=== PATIENT | female | born 1990 | race Caucasian/White ===

== ENCOUNTER 2016-07-27 19:55 | Emergency (ER) | payer OTHER ==
[~2016-07-27] VITALS: Ht 157.5 cm; Wt 75.0 kg
[~2016-07-27 19:55] MED LIST: HYDR-4003 PO; ONDA8TAB10 PO
[2016-07-27 20:10] VITALS: BP 121/80; PULSE 84; RESP 10; O2SAT 100
[2016-07-27] MEDS ORDERED: 0.9% Sodium Chloride 1,000 ML IV ONE (20:14)
--- NOTE | 2016-07-27 20:32 | ED.REPORT ---
HPI-Abd Pain F Under 40 Date of Service July 27, 2016 ED Provider: Sage Bello MD Patient is a 25 year old female with a history of kidney stones who presents to the ED complaining of abdominal pain. Associated symptoms include flank pain, fever and dysuria, and abnormal white vaginal discharge for the past two days. She denies abnormal vaginal bleeding, itching, or vaginal pain. The patient is 12 weeks . Nursing Notes Stated Complaint: KIDNEY PAIN Chief Complaint: Female Abdominal Pain Nursing Notes Reviewed: Yes Allergies: Coded Allergies: prochlorperazine (Unverified Allergy, Severe, dystonic, 03/23/16) Penicillins (Verified Allergy, Mild, hives, 07/27/16) latex (Verified Allergy, Mild, hives, 07/27/16) Uncoded Allergies: SHELLFISH (Allergy, Severe, anaphalatics, 07/27/16) CONTRAST DYE (Allergy, Unknown, 03/23/16) Scheduled Metronidazole (Metronidazole) 500 Mg Tablet 500 MG PO BID Scheduled PRN Hydrocodone-Acetaminophen 5-325 mg (Hydrocodone-Acetaminophen 5-325 mg) 1 Each Tablet 1-2 TABLET PO TID PRN PRN For Pain Ondansetron ODT (Ondansetron ODT) 8 Mg Tab.rapdis 8 MG PO Q4H PRN PRN For Nausea General Time Seen by MD: 20:14 Chief Complaint Abdominal pain Hx Obtained From: Patient Arrived By: Walk-in Sudden in Onset?: Yes Onset Occurred: 2 days ago Symptom Duration: Since onset Location: : Abdomen lower Radiation: : Flank bilateral Associated with: Reports: Dysuria, Fever, Vaginal discharge, Denies: Urinary tract symptoms, Vaginal bleeding Recent Healthcare: No recent hospitalization Similar Sx Previous: Yes Past Medical History Past Medical History kidney stones appendectomy Smoking History Unknown if Ever Smoker Social History Other Social History: Good social support Ambulatory Status Independent Review of Systems Constitutional: Reports: Fever Respiratory: Denies: Non-productive cough, Shortness of breath GI: Reports: Abdominal pain Female: Reports: Dysuria, Flank pain, , Vaginal discharge (white discharge), Denies: Vaginal bleeding - abnl Complete sys rev & neg: except as marked. Physical Exam Initial Vital Signs Vital Signs (First) Date Time Temp Pulse Resp B/P Pulse Ox O2 Delivery O2 Flow Rate FiO2 07/27/16 20:10 36.8 84 10 121/80 100 Room Air Initial VS: Reviewed General/Constitutional: Awake, Alert Distress / Hydration: Positive: Distress mild Respiratory / Chest: Atraumatic, Breath sounds NL, Breath sounds = bilat, No respiratory distress Cardiovascular: Heart rate NL, Regular rhythm, Heart sounds NL, No gallop, No murmurs Abdomen: Atraumatic, Soft, BS normoactive Tenderness/Guarding/Rebound: Positive: Tender RLQ... Back: Atraumatic, Full range of motion positive CVA tenderness on right side Head / Eyes: Atraumatic, Normocephalic, PERRL, EOMI Skin: Atraumatic, Color NL, No rash, Warm, Dry Female Genitourinary: Atraumatic, External genitalia NL, No cervical motion tend, No adnexal mass right adnexal tenderness scant, clear discharge uterus seems small for dates Neurologic: Oriented X3, Speech NL, No motor deficits, No sensory deficits Psychiatric: Affect NL, Mood NL Interpretation & Diagnostics Interpretation & Diagnostics: US RENAL: Impression: Normal study at 2319. US : Impression: Normal early intrauterine gestation No findings to explain the patient's right adnexal pain at 0038. Lab Results Interpretation Result Diagram: 07/27/16203107/27/162031 Test 07/27/16 20:32 07/27/16 20:41 07/27/16 23:30 White Blood Count 9.8th/mm3 (3.8-10.1) Red Blood Count 4.35mil/mm3 (3.90-5.20) Hemoglobin 13.3g/dL (12.0-15.6) Hematocrit 37.8% (35.0-46.0) Mean Corpuscular Volume 86.9fL (81-100) Mean Corpuscular Hemoglobin 30.6pg (27.0-35.0) Mean Corpuscular Hemoglobin Concent 35.2% (32.0-37.0) Red Cell Distribution Width 13.0% (12.3-15.4) Platelet Count 225bil/L (150-400) Neutrophils (%) (Auto) 65.5% (40-74) Lymphocytes (%) (Auto) 25.2% (14-46) Monocytes (%) (Auto) 8.0% (4-12) Eosinophils (%) (Auto) 1.0% (0-5) Basophils (%) (Auto) 0.1% (0-3) Sodium Level 136mEq/L (134-144) Potassium Level 3.6mEq/L (3.5-5.2) Chloride Level 101mEq/L (97-108) Carbon Dioxide Level 20mmol/L (18-29) Blood Urea Nitrogen 8mg/dL (6-20) Creatinine 0.46mg/dL (0.57-1.00) Estimat Glomerular Filtration Rate 241mL/min (>59) Glucose Level 84mg/dL (60-99) Calcium Level 9.0mg/dL (8.5-10.1) Magnesium Level 1.8mg/dL (1.6-2.6) Total Bilirubin 0.4mg/dL (0.0-1.2) Aspartate Amino Transf (AST/SGOT) 14U/L (0-50) Alanine Aminotransferase (ALT/SGPT) 9U/L (0-32) Alkaline Phosphatase 38U/L (25-150) Total Protein 6.3g/dL (6.4-8.4) Albumin 3.6g/dL (3.4-5.0) Lipase 19U/L (13-60) Urine Color Yellow (YELLOW) Urine Appearance Clear (CLEAR,HAZY) Urine pH 6.0 (5.0-8.0) Urine Specific [place] 1.020 (1.003-1.035) Urine Protein Negativemg/dL (NEG,TRACE) Urine Glucose (UA) Negativemg/dL (NEGATIVE) Urine Ketones Negativemg/dL (NEGATIVE) Urine Occult Blood Negative (NEGATIVE) Urine Nitrite Negative (NEGATIVE) Urine Bilirubin Negative (NEGATIVE) Urine Urobilinogen Normalmg/dL (NORMAL) Urine Leukocyte Esterase Negative (NEGATIVE) Urine RBC 0-2/hpf (0-2) Urine WBC 0-5/hpf (0-5) Urine Epithelial Cells Moderate/hpf (NONE-MOD) Urine Crystals None seen (NONE SEEN) Urine Bacteria Few/hpf (NONE-FEW) Urine Hyaline Casts None/lpf (NONE) Urine Granular Casts None seen (NONE SEEN) Urine Waxy Casts None seen (NONE SEEN) Urine Red Blood Cell Casts None seen (NONE SEEN) Urine White Blood Cell Casts None seen (NONE SEEN) Urine Mucus None seen (None Seen) Urine Trichomonas None seen (NONE SEEN) Urine Yeast None (NONE SEEN) Urinalysis Comment None Urine Culture Reflexed Not indicated Re-Eval/Medical Decision Med Decision/Clinical Course Med Decision/Clinical Course: 25 year-old female at about 12 weeks gestation. R flank pain, history of kidney stones and appy. No hematuria, no infection, no hydronephrosis on US. Only abnormality is bacteria on wet prep and clue cells. Treated with IV fluids, ondansetron and IV dilaudid. Stable throughout ED stay though she had some continued pain and nausea. Discharged on symptomatic treatment and metronidazole. Re-Evaluation/Progress #1: Time of Eval: 21:45 Re-Evaluation/Progress Note: Rechecked patient. Discussed plan for an ultrasound. Re-Evaluation/Progress #2: Time of Eval: 00:30 Re-Evaluation/Progress Note: Rechecked patient and discussed all results. Discussed plan for treatment and discharge. The patient understands and agrees to the plan for discharge. All questions were addressed. Counseled Regarding: Diagnosis, Lab results, Need for follow-up, When/why to return to ED Discharge & Departure Primary Impression: Bacterial vaginosis Additional Impression: Pelvic pain affecting Disposition: Home Discharge Condition All VS Reviewed: Yes Condition: Stable Patient Instructions: Bacterial Vaginosis (ED) Additional Instructions: Emergency Department evaluation included interview, examination, labs ultrasound of kidneys and pelvis. There does not appear to be any serious urinary pathology including infection and/or renal stones. We identified a bacterial vaginal infection which may be treated with metronidazole 500 mg twice a day for one week. This medication is considered safe in . Ondansetron as needed for nausea and vomiting, hydrocodone as needed for pain. Follow-up with your doctor in approximately 4-5 days. Return emergency Department for vaginal bleeding, fevers or increasing pelvic pain. Referrals: Smiley Pulido MD (PCP) Scribe Attestation Portions of this note were transcribed by Kari Howard. I, Dr. Bello personally performed the history, physical exam and medical decision-making; I reviewed and confirmed the accuracy of the information in the transcribed note. Signed by: Alfred Barton, 07/28/16 at 0050 copies to: Smiley Pulido MD, Donald L MD July 27, 2016 20:31 Yojana Howard July 27, 2016 20:39
[2016-07-27] MEDS: HYDROmorphone 0.5 mg/0.5 mL iSecure Syringe IVPUSH PRN ×3 (20:42→22:05)
[2016-07-27] MEDS: Ondansetron 2 mg/mL 2 mL Inj IVPUSH PRN ×2 (20:42→21:23)
[2016-07-27 20:43] LABS: BASOPHILS % (AUTO) 0.1 % (0-3); Mean Corpuscular Hemoglobin 30.6 pg (27.0-35.0); Mean Corpuscular Volume 86.9 fL (81-100); NEUTROPHILS % (AUTO) 65.5 % (40-74); Platelet Count 225 bil/L (150-400)
[2016-07-27 21:02] LABS: Magnesium 1.8 mg/dL (1.6-2.6)
[2016-07-27 21:11] LABS: APPEARANCE,URINE CLEAR (CLEAR,HAZY); COLOR,URINE YELLOW (YELLOW); OCCULT BLOOD,URINE NEGATIVE (NEGATIVE); UROBILINOGEN,URINE NORMAL (NORMAL)
[2016-07-28] MEDS ORDERED: METR500T19 PO (00:08)
[2016-07-28] MEDS: Ondansetron 2 mg/mL 2 mL Inj IVPUSH PRN (00:09)
[2016-07-28] MEDS ORDERED: _Ondansetron ODT 4 mg Tablet PO PRN (00:10)
[2016-07-28] MEDS ORDERED: _HYDROcodone/APAP 5-325 mg Tablet PO PRN (00:10)
[2016-07-28 00:56] VITALS: BP 128/78; PULSE 82; RESP 16; O2SAT 98
--- NOTE | 2016-07-28 08:53 | DRSVH ---
PROCEDURE: US RENAL SONOGRAM INDICATIONS: RIGHT FLANK PAIN, HISTORY OF STONES, . TECHNIQUE: Real-time scanning was performed of the kidneys and bladder, with image documentation. COMPARISON: None. FINDINGS: Kidneys: Kidneys are normal in size. Right kidney measures 11.0 cm long; left kidney measures 10.5 cm long. Right renal cortical thickness is 2.0 cm; left renal cortical thickness is 1.1 cm. Renal c ortical echotexture is normal. No hydronephrosis or nephrolithiasis. No suspicious solid mass lesio ns. Bladder: Bladder appears grossly normal. Right ureteral jet is present. Post void not assessed. Miscellaneous: No free pelvic fluid. IMPRESSION: 1. Normal appearance of the kidneys. Dictated by: David CHILD Interpreted: Sin Herman MD on 07/28/2016 at 8:05 Transcribed by: MILI on 07/28/2016 at 11:53 Approved by: Darryl Herman M.D. on 07/28/2016 at 9:31
--- NOTE | 2016-07-28 14:35 | DRSVH ---
PROCEDURE: US OB<14 WKS INDICATIONS: R adnexal tenderness OUTSIDE/PRIOR DATING DATA: First dating scan (date and location): 07/27/16 Estimated date of delivery ([place]) from first dating scan: 02/10/17. TECHNIQUE: Real-time scanning was performed of the fetus and maternal pelvic organs, with image documentation. Endovaginal scanning was also performed to better visualize the fetus and maternal ovaries. COMPARISON: None. FINDINGS: Embryo: [employer]NA[employer] SUPPORT Ultrasound Procedure Report Early Gestation [employer] [place] Rump Length: 5.1 cm Gestational Age (CRL): Laterally 5 days Summary Fetus Summary Heart Rate: 166 beats per minute Comments: A normal yolk sac is noted. No perigestational bleeds. Measurement variability in dating: +/- 4 weeks by LMP, +/- 7 days by mean sac diameter (use before 6 weeks gestation if crown-rump length not able to be measured), +/- 5 days by crown-rump length (6-12 weeks gestation). Maternal organs: Non-shadowing echogenic focus involves the right ovary measuring roughly 5 mm. Hypo echoic solid focus involves the uterus likely small fibroid measuring 1.3 cm. IMPRESSION: 1. 11 week 5 day single living IUP. 2. Non-shadowing echogenic focus involving the right ovary which may represent fat. 3. Probable small uterine fibroid. Dictated by: David BILL Interpreted: Sin Herman MD on 07/28/2016 at 14:31 Transcribed by: JENNIFER on 07/28/2016 at 14:34 Approved by: Darryl Herman M.D. on 07/28/2016 at 14:40
== END 2016-07-28 00:58 | disposition home or self-care (01) ==
LOC: SED 19:55
DX: O23.591 Infection of other part of genital tract in pregnancy, first trimester (principal); O99.89 Other specified diseases and conditions complicating pregnancy, childbirth and the puerperium; R10.2 Pelvic and perineal pain; Z3A.12 12 weeks gestation of pregnancy; Z88.0 Allergy status to penicillin; Z88.8 Allergy status to other drugs, medicaments and biological substances; Z91.040 Latex allergy status; Z91.013 Allergy to seafood; Z91.041 Radiographic dye allergy status
CPT/HCPCS: 36415; 76770; 76801; 80053; 81000; 83690; 83735; 85025; 87210; 87491; 87591; 96361; 96374; 96375; 96376; 99285; J1170; J2405; J7030